=== PATIENT | male | born 1945 | race Caucasian/White ===

== ENCOUNTER 2018-07-10 17:26 | Emergency (ER) | payer OTHER ==
--- OUTSIDE RECORDS SUMMARY | 2018-07-10 17:29 | XMS REPORT | Clinical Summary ---
:1945 Author Organization [facility] Address [address] [place] [address] Care Team Providers Name Role Phone Abimael Arceo MD Primary Care Provider Allergies No Known Allergies Medications Medication Sig Dispensed Refills Start Date End Date Status ANORO ELLIPTA 62.5-25 0 06/28/2017 Active mcg/actuation blister with device famotidine (PEPCID) Take 20 mg by 0 Active 20 MG tablet mouth. amLODIPine (NORVASC) 0 07/09/2017 Active 5 mg tablet aspirin 325 MG tablet Take 0.5 tablets 0 Active by mouth. HYDROcodone-acetamino Take 1 tablet by 40 tablet 0 07/27/2017 08/03/2017 phen (NORCO) 10-325 mouth every 6 mg per tablet (six) hours as needed for moderate pain for up to 7 days. Max Daily Amount: 4 tablets promethazine Take 1 tablet 20 tablet 0 07/27/2017 08/03/2017 (PHENERGAN) 25 MG (25 mg total) by tablet mouth every 6 (six) hours as needed for nausea or vomiting for up to 7 days. Active Problems Problem Noted Date Mass of hand, left 07/21/2017 Overview: Added automatically from request for surgery [id number] Encounters Date Type Specialty Care Team Description 08/11/2017 Nurse Only Orthopedic Surgery Dacia Hauser MA 08/02/2017 Nurse Only Orthopedic Surgery Leticia Wilson MA 07/29/2017 Telephone Orthopedic Surgery Rehan Stewart MD 07/29/2017 Telephone Anesthesiology Lianne Campo RN 07/28/2017 Surgery General Surgery Rehan Stewart MD EXCISION OF LEFT HAND MASS 07/28/2017 Anesthesia Event General Surgery Eddie Gracia MD 07/28/2017 Hospital Encounter General Surgery Rehan Stewart MD Mass of hand , left 07/27/2017 Refill Orthopedic Surgery Pepe Quinn 07/20/2017 Office Visit Orthopedic Surgery Rehan Stewart MD Mass of hand, left (Primary Dx) after 07/09/2017 Family History Medical History Relation Name Comments Cancer Father Diabetes Mother Relation Name Status Comments Father Mother Social History Tobacco Use Types Packs/Day Years Used Date Current Some Day Smoker Cigarettes 0.1 Smokeless Tobacco: Never Used Alcohol Use Drinks/Week oz/Week Comments No Sex Assigned at Date Recorded Not on file Job Start Date Occupation Industry Not on file Not on file Not on file Travel History Travel Start Travel End No recent travel history available. Last Filed Vital Signs Vital Sign Reading Time Taken Blood Pressure 141/73 07/28/2017 2:05 PM CDT Pulse 56 07/28/2017 2:05 PM CDT Temperature 36.4 C (97.5 F) 07/28/2017 1:53 PM CDT Respiratory Rate 16 07/28/2017 2:05 PM CDT Oxygen Saturation 96% 07/28/2017 2:05 PM CDT Inhaled Oxygen Concentration - - Weight 93.4 kg (206 lb) 07/28/2017 11:40 AM CDT Height 180.3 cm (5' 11") 07/28/2017 11:40 AM CDT Body Mass Index 28.73 07/28/2017 11:40 AM CDT Plan of Treatment Health Maintenance Due Date Last Done Comments COLON CANCER SCREENING 07/11/1993 SHINGLES VACCINES (#1) 07/11/1993 65+ PNEUMOCOCCAL VACCINE (1 of 2 - PCV13) 07/11/2008 PNEUMOCOCCAL POLYSACCHARIDE VACCINE AGE 65 AND OVER 07/11/2008 INFLUENZA VACCINE 12/08/2017 Procedures Procedure Name Priority Date/Time Associated Diagnosis Comments SURGICAL PATHOLOGY Routine 07/28/2017 4:46 PM Results for this REQUEST CDT procedure are in the results section. EXCISION, MASS 07/28/2017 1:20 PM Mass of hand, left CDT Special Needs OP, SUPINE, AXILLARY PA AN PERIPHERAL BLOCK PROCEDURE FOR PAIN Routine 07/28/2017 12:29 PM CDT Procedure Note - Ricarda Ramirez RN - 07/28/2017 12:29 PM CDT Peripheral Block Performed by: EDDIE GRACIA Authorized by: REHAN STEWART Patient Location: Pre-op Start Time: 07/28/2017 12:15 PM End Time: 07/28/2017 12:24 PM Reason for Block: at surgeon's request, post-op pain management, procedure for pain Staff: Anesthesiologist: EDDIE GRACIA Performed by: Anesthesiologist Preprocedure: patient identified, IV checked, site and side verified, risks and benefits discussed, procedure verified, surgical consent complete, patient position confirmed, monitors and equipment checked, pre-op evaluation complete and site marked Time Out Performed: 07/28/2017 12:15 PM Peripheral Nerve Block: Patient Position: Supine Prep: ChloraPrep Monitoring: Blood pressure monitoring, continuous pulse oximetry and heart rate Block Type: Brachial plexus Laterality: Left Injection Technique: Single injection Procedures: ultrasound guided Ultrasound documentation: Images saved on portable media, not saved and still images obtained Local Infiltration (See MAR for details): Ropivacaine Needle: Needle Type: Short-bevel Needle Gauge: 21 G Needle Length: 10 cm Assessment: Injection Assessment: Visualized needle/local anesthetic surrounding nerve , visualized pertinent vascular structures and nerves, needle tip visualized at all times during injection of medication, intermittent aspiration during local anesthetic administration and no symptoms of intraneural/intravenous injection Paresthesia Pain: None Heart Rate Change: No Slow Fractionated Injection: Yes Block outcome: No apparent complications, patient comfortable and patient tolerated procedure well Notes: Note transcribed for Dr. Gracia PA AN PERIPHERAL BLOCK POST-OP PAIN Routine 07/28/2017 12:29 PM CDT Procedure Note - Ricarda Ramirez RN - 07/28/2017 12:29 PM CDT Peripheral Block Performed by: EDDIE GRACIA Authorized by: REHAN STEWART Patient Location: Pre-op Start Time: 07/28/2017 12:15 PM End Time: 07/28/2017 12:24 PM Reason for Block: at surgeon's request, post-op pain management, procedure for pain Staff: Anesthesiologist: EDDIE GRACIA Performed by: Anesthesiologist Preprocedure: patient identified, IV checked, site and side verified, risks and benefits discussed, procedure verified, surgical consent complete, patient position confirmed, monitors and equipment checked, pre-op evaluation complete and site marked Time Out Performed: 07/28/2017 12:15 PM Peripheral Nerve Block: Patient Position: Supine Prep: ChloraPrep Monitoring: Blood pressure monitoring, continuous pulse oximetry and heart rate Block Type: Brachial plexus Laterality: Left Injection Technique: Single injection Procedures: ultrasound guided Ultrasound documentation: Images saved on portable media, not saved and still images obtained Local Infiltration (See MAR for details): Ropivacaine Needle: Needle Type: Short-bevel Needle Gauge: 21 G Needle Length: 10 cm Assessment: Injection Assessment: Visualized needle/local anesthetic surrounding nerve , visualized pertinent vascular structures and nerves, needle tip visualized at all times during injection of medication, intermittent aspiration during local anesthetic administration and no symptoms of intraneural/intravenous injection Paresthesia Pain: None Heart Rate Change: No Slow Fractionated Injection: Yes Block outcome: No apparent complications, patient comfortable and patient tolerated procedure well Notes: Note transcribed for Dr. Gracia XR HAND 3+ VW Routine 07/20/2017 3:39 PM Mass of hand, Results for this LEFT CDT left procedure are in the results section. after 07/09/2017 Results Surgical pathology request (07/28/2017 4:46 PM CDT) [facility] DEPARTMENT OF PATHOLOGY AND GENOMIC MEDICINE Surgical pathology report See link below for PDF [facility] DEPARTMENT OF Lab Report PATHOLOGY AND GENOMIC MEDICINE Result status This is Final Report to [facility] DEPARTMENT OF [id number] PATHOLOGY AND GENOMIC MEDICINE Performing Organization Address [facility] Phone Number [facility] DEPARTMENT OF PATHOLOGY AND [address] [facility]. [address] [place] [id number] GENOMIC MEDICINE XR Hand 3+ Vw Left (07/20/2017 3:39 PM CDT) Narrative Performed At X-rays were ordered, performed and reviewed by me today:3 views of the [place] [facility] left hand are negative for any acute fractures, dislocations. 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 Performing Organization Address City/[facility]/Zipcode Phone Number [place] [address] [place] [address] after 07/09/2017 Insurance Payer Benefit Plan / Group Subscriber ID Type Phone Address [facility] xxxxxxxxx HMO Home) [address] [place] [address] Advance Directives Patient has advance care planning documents on file. For more information, please contact:[place] [address]
[2018-07-10] MEDS ORDERED: TETANUS & DIPHTHERIA TOX,ADULT 0.5 ML VIAL ONE (18:06)
[2018-07-10] MEDS ORDERED: LIDOCAINE 1% MPF 5 ML VIAL ONE (18:06)
--- NOTE | 2018-07-10 19:20 | EDPHYS ---
Physician Documentation [facility] Name: Donavon Dang Age: 72 yrs Sex: Male : 1945 Arrival Date: 07/10/2018 Time: 17:28 Bed 23 Private MD: Abimael Bergeron R ED Physician Andrei Calloway HPI: 07/10 18:00 This 72 yrs old Male presents to ER via Ambulatory with complaints of cp Laceration - Thumb. 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 - Social history:: Smoking status: Patient/guardian denies using tobacco. - Ebola Screening: : No symptoms or risks identified at this time. ROS: 18:05 Constitutional: Negative for body aches, chills, fever, poor PO intake. cp 18:05 Eyes: Negative for injury, pain, redness, and discharge. cp 18:05 ENT: Negative for drainage from ear(s), ear pain, sore throat, difficulty swallowing, difficulty handling secretions. 18:05 Cardiovascular: Negative for chest pain. 18:05 Respiratory: Negative for cough, shortness of breath, wheezing. 18:05 Abdomen/GI: Negative for abdominal pain, vomiting, diarrhea, constipation. 18:05 Skin: Positive for laceration(s), of the dorsal side proximal right thumb. 18:05 Neuro: Negative for numbness. 18:05 All other systems are negative. Exam: 18:12 Constitutional: The patient appears in no acute distress, alert, awake, well developed, cp well nourished. 18:12 Head/Face: Normocephalic, atraumatic. cp 18:12 Eyes: Periorbital structures: appear normal, Conjunctiva: normal, Lids and lashes: appear normal, bilaterally. 18:12 ENT: External ear(s): are unremarkable, Nose: is normal, Mouth: is normal. 18:12 Chest/axilla: Inspection: normal. 18:12 Cardiovascular: Rate: normal. 18:12 Respiratory: the patient does not display signs of respiratory distress, Respirations: normal. 18:12 Musculoskeletal/extremity: ROM: full active range of motion, in the right thumb, Perfusion: the extremity is normally perfused throughout, Sensation intact. Tendon exam: specific tendon testing normal through active and passive range of motion 18:12 Skin: injury, laceration(s), the wound is approximately 3 cm(s), of the dorsal aspect proximal right thumb, that can be described as clean, linear, with mild bleeding. Vital Signs: 17:37 BP 174 / 78; Pulse 71; Resp 18; Temp 97.5; Pulse Ox 98% on R/A; Weight 96.16 kg; Height la1 5 ft. 11 in. (180.34 cm); 18:30 BP 148 / 81; Pulse 58; Resp 19; Pulse Ox 98% on R/A; Pain 2/10; ca1 19:15 BP 167 / 81; Pulse 66; Resp 19; Pulse Ox 100% on R/A; ca1 17:37 Body Mass Index 29.57 (96.16 kg, 180.34 cm) la1 Procedures: 19:15 Splinting: Splint applied to right hand using velcro thumb spica splint. applied by cp nurse. Examined by me, post splint application: neurovascular intact, Patient tolerated well. Laceration: 19:15 Wound Repair of 3cm ( 1.2in ) subcutaneous laceration to dorsal aspect right thumb. cp Linear shaped.. Distal neuro/vascular/tendon intact. Anesthesia: Wound infiltrated with 4 mls of 1% lidocaine. Wound prep: Moderate cleansing by nurse, Wound irrigation by nurse. Skin closed with 5 4-0 Prolene using interrupted sutures and sterile technique. Dressed with Bacitracin, 4x4's. Patient tolerated well. MDM: 17:44 Patient medically screened. cp 19:18 Data reviewed: vital signs, nurses notes, and as a result, I will discharge patient. 07/10 17:48 Order name: Prolene, Sutures: 4-0 suture; Complete Time: 18:29 cp 07/10 17:48 Order name: Dressing - Wound; Complete Time: 18:30 cp 07/10 17:48 Order name: Gloves, Sterile; Complete Time: 18:29 cp 07/10 17:48 Order name: Setup Suture Tray; Complete Time: 18:29 cp 07/10 17:48 Order name: Wound Care: please clean and irrigate wound; Complete Time: 18:29 cp 03/03 19:02 Order name: Thumb Spica Splint: velcro type; Complete Time: 19:06 cp Administered Medications: 17:58 Drug: Tetanus-Diphtheria Toxoid Adult 0.5 ml {Raker Buffing Wheel: Profyle. Exp: mg2 06/23/2020. Lot #: [id number]. } Route: IM; Site: right deltoid; 18:44 Follow up: Response: No adverse reaction ca1 18:00 Drug: Lidocaine (1 %) 5 ml {Note: Administered by RONALD Mtz.} Volume: 5 ml; Route: ca1 Infiltration; 19:06 Follow up: Response: No adverse reaction; Marked relief of symptoms mg2 Disposition: 07/11 12:02 Co-signature as Attending Physician, Andrei Calloway MD. Disposition: 07/10/18 19:20 Discharged to Home. Impression: Laceration without foreign body of right thumb without damage to nail. - Condition is Stable. - Discharge Instructions: Laceration Care, Adult. - Medication Reconciliation Form, Thank You Letter, Antibiotic Education form. - Follow up: Private Physician; When: 7 - 10 days; Reason: Staple/Suture removal. - Problem is new. - Symptoms have improved. Signatures: Felipe Bynum RN RN la1 Rip Lopez PA PA cp Starr, Gregory, MD MD Russ Hendricks RN RN mg2 Modesta Green RN RN ca1 Corrections: (The following items were deleted from the chart) 07/10 19:29 19:20 07/10/2018 19:20 Discharged to Home. Impression: Laceration without foreign body ca1 of right thumb without damage to nail. Condition is Stable. Forms are Medication Reconciliation Form, Thank You Letter, Antibiotic Education, Prescription Opioid Use. Follow up: Private Physician; When: 7 - 10 days; Reason: Staple/Suture removal. Problem is new. Symptoms have improved. cp
--- NOTE | 2018-07-10 19:20 | ER ---
Nurse's Notes [facility] Name: Donavon Dang Age: 72 yrs Sex: Male : 1945 Arrival Date: 07/10/2018 Time: 17:28 Bed 23 Private MD: Abimael Bergeron R Diagnosis: Laceration without foreign body of right thumb without damage to nail Presentation: 07/10 17:37 Presenting complaint: Patient states: I cut my right thumb with the saran wrap lid, CMS la1 intact. Transition of care: patient was not received from another setting of care. Complicating Factors: There are no complicating factors for this patient. Onset of symptoms was July 10, 2018. Risk Assessment: Do you want to hurt yourself or someone else? Patient reports no desire to harm self or others. Initial Sepsis Screen: Does the patient meet any 2 criteria? No. Patient's initial sepsis screen is negative. Does the patient have a suspected source of infection? No. Patient's initial sepsis screen is negative. Care prior to arrival: None. 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 - Social history:: Smoking status: Patient/guardian denies using tobacco. - Ebola Screening: : No symptoms or risks identified at this time. Screenin:40 Abuse screen: Denies threats or abuse. Denies injuries from another. ca1 17:40 Nutritional screening: No deficits noted. Tuberculosis screening: No symptoms or risk ca1 factors identified. Fall Risk None identified. Assessment: 17:40 General: Appears in no apparent distress. Behavior is calm, cooperative, appropriate ca1 for age. Pain: Complains of pain in right hand Pain level that patient reports is acceptable is 2 out of 10 on a pain scale. Neuro: Level of Consciousness is awake, alert, obeys commands, Oriented to person, place, time, situation. Cardiovascular: Heart tones S1 S2 present Capillary refill < 3 seconds Patient's skin is warm and dry. Respiratory: Airway is patent Respiratory effort is even, unlabored, Respiratory pattern is regular, symmetrical, Breath sounds are clear bilaterally. GI: No signs and/or symptoms were reported involving the gastrointestinal system. : No signs and/or symptoms were reported regarding the genitourinary system. EENT: No signs and/or symptoms were reported regarding the EENT system. Derm: Skin is intact, is healthy with good turgor, Skin is pink, warm \T\ dry. Musculoskeletal: Circulation, motion, and sensation intact. Capillary refill < 3 seconds. Injury Description: Laceration sustained to lateral aspect of right hand is clean, 2.6 to 7.5 cm long, bleeding moderately, was sustained less than 30 minutes ago. is bleeding moderately. 18:45 Reassessment: Patient appears in no apparent distress at this time. Critical care time ca1 stopped, patient has stabilized. Rip Page at Bedside for Suturing. . 19:15 Reassessment: Patient appears in no apparent distress at this time. Patient and/or ca1 family updated on plan of care and expected duration. Pain level reassessed. Patient is alert, oriented x 3, equal unlabored respirations, skin warm/dry/pink. Applied splint. Vital Signs: 17:37 BP 174 / 78; Pulse 71; Resp 18; Temp 97.5; Pulse Ox 98% on R/A; Weight 96.16 kg; Height la1 5 ft. 11 in. (180.34 cm); 18:30 BP 148 / 81; Pulse 58; Resp 19; Pulse Ox 98% on R/A; Pain 2/10; ca1 19:15 BP 167 / 81; Pulse 66; Resp 19; Pulse Ox 100% on R/A; ca1 17:37 Body Mass Index 29.57 (96.16 kg, 180.34 cm) la1 ED Course: 17:28 Patient arrived in ED. as 17:29 Abimael Bergeron MD is Private Physician. as 17:37 Triage completed. la1 17:38 Arm band placed on left wrist. la1 17:40 Patient has correct armband on for positive identification. Bed in low position. Call ca1 light in reach. Side rails up X 1. Pulse ox on. NIBP on. Warm blanket given. 17:44 Rip Lopez PA is PHCP. cp 17:44 Andrei Calloway MD is Attending Physician. cp 17:49 Modesta Green RN is Primary Nurse. ca1 18:25 Wound care: to laceration located on lateral aspect of right hand and palmar aspect of jp3 proximal phalanx of right thumb was cleaned with Hibiclens, soaked in Hibiclens solution, debrided using Betadine scrub, irrigated with normal saline, Patient tolerated well. 18:45 Assist provider with laceration repair on lateral aspect of right hand that was between ca1 2.6 to 7.5 cm using sutures. Set up tray. Performed by Rip CARDENAS Dressed with 4X4s, Neosporin, Patient tolerated well. 19:06 Patient did not have IV access during this emergency room visit. thumb spica -velcro mg2 applied on the right hand.. Administered Medications: 17:58 Drug: Tetanus-Diphtheria Toxoid Adult 0.5 ml {Rehab Aide: Guavas. Exp: mg2 06/23/2020. Lot #: [id number]. } Route: IM; Site: right deltoid; 18:44 Follow up: Response: No adverse reaction ca1 18:00 Drug: Lidocaine (1 %) 5 ml {Note: Administered by RONALD Mtz.} Volume: 5 ml; Route: ca1 Infiltration; 19:06 Follow up: Response: No adverse reaction; Marked relief of symptoms mg2 Outcome: 19:20 Discharge ordered by . aj 19:28 Discharged to home ambulatory. ca1 19:28 Condition: stable 19:28 Discharge instructions given to patient, Instructed on discharge instructions, follow up and referral plans. Demonstrated understanding of instructions, follow-up care. 19:29 Patient left the ED. ca1 Signatures: Jada Sanabria Lee, RN RN la1 Rip Lopez PA PA cp Russ Hendricks RN RN mg2 Allen Silver jp3 Modesta Green RN RN ca1 Corrections: (The following items were deleted from the chart) 19:27 17:40 BP 148 / 81; Pulse 58bpm; Resp 19bpm; Pulse Ox 98% RA; Pain 2/10; ca1 ca1
[2018-07-10 19:35] VITALS: TEMP 97.5
[2018-07-10 19:38] VITALS: BP 167/81; O2SAT 100
== END 2018-07-10 19:29 | disposition home or self-care (01) ==
LOC: ER 17:26
PROC: 0JQJ0ZZ Repair Right Hand Subcutaneous Tissue and Fascia, Open Approach (ICD-10-PCS; principal; 2018-07-10)
DX: S61.011A Laceration without foreign body of right thumb without damage to nail, initial encounter (principal); W45.8XXA Other foreign body or object entering through skin, initial encounter; Y93.9 Activity, unspecified; Y92.9 Unspecified place or not applicable; Z23 Encounter for immunization
CPT/HCPCS: 90714; 99284

== ENCOUNTER 2024-09-18 06:30 | Day surgery (SDC) | payer OTHER ==
[2024-09-14 13:49] LABS: Absolute Eosinophils 0.2 K/uL (0-0.5); Absolute Lymphocytes (CBC) 1.8 K/uL (0.7-4.9); Absolute Monocytes 0.7 K/uL (0.1-1.3); Absolute Neutrophil 4.1 K/uL (1.8-8.0); Basophils % 0.6 % (0-1.3); Eosinophils % 2.8 % (0-4.4); Hematocrit 45.3 % (39.6-49.0); MCH 33.7 pg (27.0-35.0); MCHC 35.4 g/dL (32.0-36.0); MCV 95.2 fL (80-100); MPV 6.6 fL (7.6-11.3); Monocytes % 9.7 % (3.3-12.3); Neutrophils % 60.9 % (41.7-73.7); Nucleated Red Blood Cells % 0.2 % (0-0); Platelets 211 thou/uL (152-406); RBC Red Blood Cell Count 4.75 M/uL (4.33-5.43); Red Cell Distribution Width 13.9 % (12.1-15.2)
[2024-09-14 13:53] LABS: PT Prothrombin Time 12.9 SECONDS (10-13.0); PTT, Activated Partial Thromb 34.7 SECONDS (27.2-37.4); Protime INR 1.14
[2024-09-14 13:57] LABS: Anion Gap 9.4 mEq/L (5.0-15.0); Potassium 4.4 mEq/L (3.5-5.1)
--- NOTE | 2024-09-14 18:55 | RAD REPORT ---
EXAMINATION: TWO VIEW CHEST XR CLINICAL INDICATION: Male, 79 years old. [facility] Pre-op pending heart cath. Hypertension TECHNIQUE: 2 view radiographs of the chest were performed. COMPARISON: 03/17/2011 FINDINGS: The lungs are hyperexpanded suggesting COPD. No new focal airspace opacities. Streaky atelectatic real nges especially on the left, stable. No pneumothorax or sizable effusion. The heart is normal in size. Mediastinal contours are unremarkable. IMPRESSION: No acute or significant abnormalities.
[2024-09-18] MEDS ORDERED: NA CHLORIDE 0.9% 500 ML ONE (06:41)
[2024-09-18] MEDS ORDERED: HEPA 1000U/500MLS 2,000 UNIT/1,000 ML BAG IV ONE (07:13)
[2024-09-18] MEDS ORDERED: NITROGLYCERIN/D5W 50 MG/250 ML BTL IV ONE (07:13)
[2024-09-18] MEDS ORDERED: HEPARIN 10,000 UNIT/10 ML VIAL IV ONE (07:14)
[2024-09-18] MEDS ORDERED: VERAPAMIL HCL 10 MG/4 ML VIAL IV ONE (07:14)
[2024-09-18] MEDS ORDERED: LIDOCAINE 1% 20 ML MDV ONE (07:14)
[2024-09-18] MEDS ORDERED: ATROPINE SULF 1 MG/10 ML SYR IV ONE (07:14)
[2024-09-18] MEDS ORDERED: FLUMAZENIL 0.1 MG/ML (5 mL VIAL) IV ONE (07:15)
[2024-09-18] MEDS ORDERED: TICAGRELOR 90 MG TABLET PO ONE (07:15)
[2024-09-18] MEDS ORDERED: NALOXONE 0.4 MG/ML VIAL ONE (07:15)
[2024-09-18] MEDS ORDERED: HEPARIN 5000 UNIT/ML 1 ML VIAL ONE (07:15)
[2024-09-18] MEDS ORDERED: ASPIRIN 325 MG TAB ONE (07:15)
[2024-09-18] MEDS ORDERED: CLOPIDOGREL 75 MG TABLET ONE (07:15)
[2024-09-18] MEDS ORDERED: FENTANYL CITR 100 MCG/2 ML ONE (07:18)
[2024-09-18] MEDS ORDERED: MIDAZOLAM HCL 2 MG/2 ML INJ ONE (07:18)
[2024-09-18 10:27] VITALS: BP 114/39; O2SAT 95
--- NOTE | 2024-09-18 11:31 | OP ---
Date of Procedure: 09/18/2024 Surgeon: NAM BRITO Procedures Performed: 1. Selective coronary angiogram. 2. Left heart catheterization. Indication: V-tach. Access: Right radial artery 6-Panamanian closed with TR band. Complications: None. Bleeding: Less than 50 mL. Total Sedation Time: 45 minutes, used fentanyl and Versed. Description Of Procedure: After risks, benefits, and alternatives were explained, the patient agreed to procedure and signed informed consent. [facility] and draped in sterile fashion. Then, I accessed right radial artery using pediatric micropuncture kit. I placed a 6-Panamanian slender sheath and took 5-Panamanian [place] 4.0 catheter into aort ic root over a J-wire and across the aortic valve, measured the LVEDP. Pullback did not record any g radient, then engaged left main, took standard views and then in the RCA, took standard views, and th en removed the catheter and the sheath, placed TR band with good hemostasis. Findings: 1. Left main is normal. 2. LAD; proximal segment is normal. Mid segment long, heavily calcified, 90% stenosis at 2 diagonal takeoff; diagonal 1 has mid 70%, diagonal 2 has mid 70%. Rest of the LAD is with luminal irregularit ies. 3. Left circumflex; moderate size, proximal 30%, and the OM has 50% stenosis. Rest of the left circu mflex is with no significant disease. 4. RCA; ostial 40% stenosis, proximal 50% stenosis, and mid 40% stenosis and then luminal irregularit ies. 5. LVEDP is 15 mmHg. Conclusion: 1. Severe mid LAD disease, heavily calcified at the bifurcation of the diagonal, needs complex PCI to be done at [place] at [facility]. 2. Moderate coronary artery disease elsewhere. Plan: To schedule complex PCI with the atherectomy at [place] for the LAD. SR/MODL Voice ID: [id number] Report ID: [id number]
--- NOTE | 2024-09-18 12:11 | EKG ---
Test Date: 2024-09-14 Test Time: 13:29:07 Contract Technical Writer: SANAM MEASUREMENT RESULTS: Intervals: Rate: 55 VT: 148 QRSD: 100 QT: 408 QTc: 390 Adel: P: 59 VT: 148 QRS: 40 T: 14 INTERPRETIVE STATEMENTS: Sinus bradycardia with sinus arrhythmia with occasional premature ventricular complexes Otherwise normal ECG Compared to ECG 11/01/2014 11:09:15 Ventricular premature complex(es) now present Electronically Signed On 09-18-24 12:08:07 CDT by Giacomo Ramirez
== END 2024-09-18 10:40 | disposition home or self-care (01) ==
LOC: PRE 06:30 → CCL 10:40
PROVIDERS: ATTEND Internal Medicine
DX: I25.10 Atherosclerotic heart disease of native coronary artery without angina pectoris (principal); I47.20 Ventricular tachycardia, unspecified; I51.7 Cardiomegaly; I10 Essential (primary) hypertension; E78.5 Hyperlipidemia, unspecified; F17.210 Nicotine dependence, cigarettes, uncomplicated; Z79.82 Long term (current) use of aspirin; Z79.899 Other long term (current) drug therapy
CPT/HCPCS: 93005; 85025; 80048; 36415; 85610; 85730; 71046; 93458; 76937; C1893; Q9966; J1644; J2003; J7040; J0461; J2250; J2310; J3010